=== PATIENT | male | born 1970 | race Caucasian/White ===

== ENCOUNTER 2017-09-05 13:19 | Emergency (ER) | payer MEDICARE, MEDICAID ==
[~2017-09-05] VITALS: Ht 182781.3 cm; Wt 74.5 kg
[~2017-09-05 13:19] MED LIST: AZIT250T PO; BACL10TA2 PO; BUPR300T7 PO; GABA-532 PO; LOPE2CAP; ONDA4TAB6 PO; PANT40TA4 PO; SACC250C PO; VARD10TA18
[2017-09-05 14:05] LABS: BASOPHILS # (AUTO) 0.1 X10'3 (0-0.2); BASOPHILS % (AUTO) 0.6 % (0-1); EOSINOPHILS # (AUTO) 0.1 X10'3 (0-0.9); EOSINOPHILS % (AUTO) 0.6 % (0-6); HEMATOCRIT 38.2 % (42.0-52.0); LYMPHOCYTES # (AUTO) 1.7 X10'3 (1.1-4.8); LYMPHOCYTES % (AUTO) 13.4 % (21-51); MEAN CORPUSCULAR HEMOGLOBIN 32.8 PG (27.0-31.0); MEAN CORPUSCULAR VOLUME 96.4 FL (78-98); MEAN PLATELET VOLUME 8.2 FL (7.4-10.4); MONOCYTES # (AUTO) 1.1 X10'3 (0-0.9); MONOCYTES % (AUTO) 8.3 % (2-12); NEUTROPHILS % (AUTO) 77.1 % (42-75); PLATELET COUNT 244 X10'3 (140-440); RED BLOOD COUNT 3.96 X10'6 (4.70-6.10); RED CELL DISTRIBUTION WIDTH 12.7 % (11.5-14.5)
[2017-09-05 14:21] LABS: ALANINE AMINOTRANSFERASE 49 U/L (12-78); ALBUMIN 3.9 G/DL (3.4-5.0); ALBUMIN/GLOBULIN RATIO 1.3 (1.1-1.5); ALKALINE PHOSPHATASE 48 IU/L (46-116); ANION GAP 9 (8-16); ASPARTATE AMINO TRANSFERASE 89 U/L (10-37); BILIRUBIN,TOTAL 0.6 MG/DL (0.1-1.0); BLOOD UREA NITROGEN 20 MG/DL (7-18); BUN/CREATININE RATIO 16.3 (5.4-32.0); CALCIUM 9.5 MG/DL (8.5-10.1); CHLORIDE 105 MMOL/L (99-107); CREATININE 1.23 MG/DL (0.60-1.10); ETHANOL < 0.010 GM/DL (0.0-0.010); GLUCOSE 122 MG/DL (70-104); POTASSIUM 3.9 MMOL/L (3.5-5.1); SODIUM 143 MMOL/L (135-145); TOTAL CARBON DIOXIDE 29.4 MMOL/L (24-32); eGFR 63 ML/MIN
[2017-09-05] MEDS ORDERED: LORazepam 2 mg/ml vial IM ONE (15:55)
[2017-09-05] MEDS ORDERED: haloperidol lactate 5mg/ml inj IM ONE (15:55)
[2017-09-05 18:18] LABS: CLARITY,URINE SLIGHTLY CLOUDY (Clear); COLOR,URINE YELLOW (Yellow); GLUCOSE, URINE NEGATIVE (Neg); KETONES,URINE 40 mg/dl (Neg); LEUKOCYTE ESTERASE ,URINE NEGATIVE (Neg); NITRITES, URINE NEGATIVE (Neg); OCCULT BLOOD,URINE NEGATIVE (Neg); PROTEIN,URINE TRACE mg/dl (Neg); UROBILINOGEN,URINE 0.2 E.U/dL (0.2-1.0)
[2017-09-05 18:21] LABS: UA COLLECTION TYPE VOIDED
[2017-09-05 18:29] LABS: URINE AMPHETAMINE SCREEN NEGATIVE (Neg); URINE BARBITUATE SCREEN NEGATIVE (Neg); URINE BENZODIAZEPINES SCREEN NEGATIVE (Neg); URINE CANNABINOID SCREEN POSITIVE (Neg); URINE COCAINE SCREEN NEGATIVE (Neg); URINE METHADONE SCREEN NEGATIVE (Neg); URINE OPIATE SCREEN POSITIVE (Neg); URINE PHENCYCLIDINE SCREEN NEGATIVE (Neg)
[2017-09-05 18:30] LABS: BACTERIA,URINE NONE SEEN /HPF (Neg); RBC,URINE 0-2 /HPF (0-2); SQUAMOUS EPITHELIAL CELL,UR FEW /LPF (FEW); WBC,URINE 0-4 /HPF (0-4)
[2017-09-05] MEDS ORDERED: OLAN10VI4 IM (22:58)
[2017-09-05] MEDS ORDERED: OLAN10TA3 PO (22:58)
[2017-09-05] MEDS ORDERED: LAMO25TA94 PO (22:58)
[2017-09-05] MEDS ORDERED: OLAN5TAB3 PO (22:58)
[2017-09-05] MEDS ORDERED: OLANZapine **IM** 10 mg inj. IM PRN (23:25)
[2017-09-05] MEDS ORDERED: OLANZapine 5mg rapidly disint. tablet PO PRN (23:31)
[2017-09-06] MEDS: lamoTRIgine 25mg tablet PO SCH (08:13)
[2017-09-06] MEDS: olanzapine 10mg tablet PO SCH (20:41)
[2017-09-07] MEDS: lamoTRIgine 25mg tablet PO SCH (08:17)
[2017-09-07] MEDS: nicotine 14mg patch - 24hr TD SCH (12:29)
[2017-09-07] MEDS: olanzapine 10mg tablet PO SCH (20:32)
[2017-09-07] MEDS ORDERED: ibuprofen tablet 400 MG TABLET PO ONE (21:00)
[2017-09-08] MEDS: lamoTRIgine 25mg tablet PO SCH (08:01)
[2017-09-08] MEDS: nicotine 14mg patch - 24hr TD SCH ×2 (08:02→08:05)
[2017-09-08 12:51] VITALS: BP 108/64
[2017-09-10] MEDS ORDERED: BACDS PO (17:07)
[2017-09-10] MEDS ORDERED: CEPH500C5 PO (17:07)
[2017-09-13] MEDS ORDERED: GABA-532 PO (07:07)
[2017-09-13] MEDS ORDERED: BUPR300T54 PO (07:07)
[2017-09-13] MEDS ORDERED: CLON-529 PO (07:07)
[2017-09-13] MEDS ORDERED: LAMO100T2 PO (07:07)
== END 2017-09-08 12:54 ==
LOC: ER 13:19
DX: F25.0 Schizoaffective disorder, bipolar type (principal); F23 Brief psychotic disorder; G89.29 Other chronic pain; Z86.19 Personal history of other infectious and parasitic diseases; Z88.8 Allergy status to other drugs, medicaments and biological substances; Z79.899 Other long term (current) drug therapy
CPT/HCPCS: 36415; 80053; 80305; 80320; 81001; 84443; 85025; 96372; 99285; J1630; J2060; J3490

== ENCOUNTER 2017-09-20 19:19 | Emergency (ER) | payer MEDICARE, MEDICAID ==
[~2017-09-20] VITALS: Ht 5871 cm; Wt 75.0 kg
[~2017-09-20 19:19] MED LIST changes: -AZIT250T PO; +BACDS PO; -BACL10TA2 PO; +BUPR300T54 PO; -BUPR300T7 PO; +CEPH500C5 PO; +CLON-529 PO; +LAMO100T2 PO; -LOPE2CAP; +OLAN10TA3 PO; +OLAN10VI4 IM; +OLAN5TAB3 PO; -ONDA4TAB6 PO; -PANT40TA4 PO; -SACC250C PO; -VARD10TA18
[2017-09-20] MEDS ORDERED: haloperidol lactate 5mg/ml inj IM ONE (19:50)
[2017-09-20] MEDS ORDERED: diphenhydrAMINE 50 mg/ml inj IM ONE (19:50)
[2017-09-20 20:54] LABS: BASOPHILS # (AUTO) 0.1 X10'3 (0-0.2); BASOPHILS % (AUTO) 0.9 % (0-1); EOSINOPHILS # (AUTO) 0.3 X10'3 (0-0.9); EOSINOPHILS % (AUTO) 2.8 % (0-6); HEMATOCRIT 38.9 % (42.0-52.0); HEMOGLOBIN 13.2 g/dl (14.0-17.9); LYMPHOCYTES # (AUTO) 2.1 X10'3 (1.1-4.8); LYMPHOCYTES % (AUTO) 18.9 % (21-51); MEAN CORPUSCULAR HEMOGLOBIN 33.2 PG (27.0-31.0); MEAN CORPUSCULAR HGB CONC 33.9 % (33.0-36.5); MEAN CORPUSCULAR VOLUME 97.8 FL (78-98); MEAN PLATELET VOLUME 7.5 FL (7.4-10.4); MONOCYTES # (AUTO) 0.9 X10'3 (0-0.9); MONOCYTES % (AUTO) 7.8 % (2-12); NEUTROPHILS # (AUTO) 7.6 X10'3 (1.8-7.7); NEUTROPHILS % (AUTO) 69.6 % (42-75); PLATELET COUNT 276 X10'3 (140-440); RED BLOOD COUNT 3.97 X10'6 (4.70-6.10); RED CELL DISTRIBUTION WIDTH 12.7 % (11.5-14.5); WHITE BLOOD COUNT 10.9 X10'3 (4.5-11.0)
[2017-09-20 21:19] LABS: ALANINE AMINOTRANSFERASE 33 U/L (12-78); ALBUMIN 3.9 G/DL (3.4-5.0); ALBUMIN/GLOBULIN RATIO 1.2 (1.1-1.5); ALKALINE PHOSPHATASE 54 IU/L (46-116); ANION GAP 6 (8-16); ASPARTATE AMINO TRANSFERASE 28 U/L (10-37); BILIRUBIN,TOTAL 0.3 MG/DL (0.1-1.0); BLOOD UREA NITROGEN 15 MG/DL (7-18); BUN/CREATININE RATIO 14.9 (5.4-32.0); CALCIUM 9.2 MG/DL (8.5-10.1); CHLORIDE 104 MMOL/L (99-107); CREATININE 1.01 MG/DL (0.60-1.10); ETHANOL < 0.010 GM/DL (0.0-0.010); GLUCOSE 101 MG/DL (70-104); POTASSIUM 4.5 MMOL/L (3.5-5.1); SODIUM 141 MMOL/L (135-145); TOTAL CARBON DIOXIDE 30.9 MMOL/L (24-32); TOTAL PROTEIN 7.2 G/DL (6.4-8.2); eGFR 79 ML/MIN
[2017-09-20 21:24] LABS: ACETAMINOPHEN < 2.0 UG/ML (10-30)
[2017-09-21] MEDS ORDERED: BACL10TA PO (05:22)
[2017-09-21] MEDS ORDERED: TRAZ-146 PO (05:25)
[2017-09-21] MEDS ORDERED: DIPH50CA3 PO (05:35)
[2017-09-21] MEDS ORDERED: traZODone 50mg tablet PO PRN (06:00)
[2017-09-21 07:59] LABS: CLARITY,URINE CLEAR (Clear); COLOR,URINE YELLOW (Yellow); GLUCOSE, URINE NEGATIVE (Neg); KETONES,URINE NEGATIVE (Neg); LEUKOCYTE ESTERASE ,URINE NEGATIVE (Neg); NITRITES, URINE NEGATIVE (Neg); OCCULT BLOOD,URINE NEGATIVE (Neg); PROTEIN,URINE NEGATIVE (Neg); UROBILINOGEN,URINE 0.2 E.U/dL (0.2-1.0)
[2017-09-21 08:05] LABS: URINE AMPHETAMINE SCREEN NEGATIVE (Neg); URINE BARBITUATE SCREEN NEGATIVE (Neg); URINE BENZODIAZEPINES SCREEN NEGATIVE (Neg); URINE CANNABINOID SCREEN POSITIVE (Neg); URINE COCAINE SCREEN NEGATIVE (Neg); URINE METHADONE SCREEN NEGATIVE (Neg); URINE OPIATE SCREEN NEGATIVE (Neg); URINE PHENCYCLIDINE SCREEN NEGATIVE (Neg)
[2017-09-21 08:06] LABS: UA COLLECTION TYPE VOIDED
[2017-09-21] MEDS: gabapentin 300mg capsule PO SCH ×3 (08:26→20:01)
[2017-09-21] MEDS ORDERED: DIPH25CA46 (08:31)
[2017-09-21] MEDS ORDERED: OLANZapine **IM** 10 mg inj. IM PRN (12:15)
[2017-09-21] MEDS: OLANZapine 2.5MG tablet PO SCH (12:45)
[2017-09-21] MEDS: OLANZapine 2.5MG tablet PO PRN (18:59)
[2017-09-21] MEDS ORDERED: diphenhydrAMINE 50 mg/ml inj IM ONE (19:15)
[2017-09-21] MEDS ORDERED: haloperidol lactate 5mg/ml inj IM ONE (19:15)
[2017-09-21] MEDS ORDERED: traZODone 50mg tablet PO SCH (21:00)
[2017-09-22] MEDS: OLANZapine 2.5MG tablet PO PRN (05:22)
[2017-09-22 05:32] VITALS: BP 125/83
[2017-09-22] MEDS: gabapentin 300mg capsule PO SCH ×2 (08:26→13:19)
[2017-09-22] MEDS: OLANZapine 2.5MG tablet PO SCH (08:26)
[2017-09-22] MEDS ORDERED: haloperidol lactate 5mg/ml inj IM ONE ×2 (12:15→12:24)
[2017-09-22] MEDS ORDERED: diphenhydrAMINE 50 mg/ml inj IM ONE (12:15)
[2017-09-22] MEDS ORDERED: LORazepam 2 mg/ml vial IM ONE (12:15)
== END 2017-09-22 19:20 ==
LOC: ER 19:19
DX: F29 Unspecified psychosis not due to a substance or known physiological condition (principal); G89.29 Other chronic pain; Z86.19 Personal history of other infectious and parasitic diseases; Z88.8 Allergy status to other drugs, medicaments and biological substances; Z79.899 Other long term (current) drug therapy
CPT/HCPCS: 36415; 80053; 80305; 80320; 80329; 81003; 84443; 85025; 96372; 99285; J1200; J1630; J2060

== ENCOUNTER 2020-07-11 14:57 | Emergency (ER) | payer MEDICARE, MEDICAID ==
[~2020-07-11] VITALS: Ht 175.3 cm; Wt 88.3 kg
[~2020-07-11 14:57] MED LIST changes: -BACDS PO; -BUPR300T54 PO; -CEPH500C5 PO; -CLON-529 PO; +DIPH50CA3 PO; -LAMO100T2 PO; -OLAN10TA3 PO; -OLAN10VI4 IM; -OLAN5TAB3 PO; +TRAZ-256 PO
[2020-07-11 15:27] LABS: BASOPHILS # (AUTO) 0.1 X10'3 (0-0.2); BASOPHILS % (AUTO) 0.5 % (0-1); EOSINOPHILS # (AUTO) 0.2 X10'3 (0-0.9); EOSINOPHILS % (AUTO) 1.8 % (0-6); HEMATOCRIT 42.5 % (42.0-52.0); HEMOGLOBIN 14.6 g/dl (14.0-17.9); LYMPHOCYTES # (AUTO) 0.9 X10'3 (1.1-4.8); LYMPHOCYTES % (AUTO) 9.7 % (21-51); MEAN CORPUSCULAR HEMOGLOBIN 32.6 PG (27.0-31.0); MEAN CORPUSCULAR HGB CONC 34.3 g/dL (33.0-36.5); MEAN PLATELET VOLUME 7.6 FL (7.4-10.4); MONOCYTES # (AUTO) 0.8 X10'3 (0-0.9); MONOCYTES % (AUTO) 7.9 % (2-12); NEUTROPHILS # (AUTO) 7.6 X10'3 (1.8-7.7); NEUTROPHILS % (AUTO) 80.1 % (42-75); PLATELET COUNT 277 X10'3 (140-440); RED BLOOD COUNT 4.48 X10'6 (4.70-6.10); RED CELL DISTRIBUTION WIDTH 12.8 % (11.5-14.5); WHITE BLOOD COUNT 9.5 X10'3 (4.5-11.0)
[2020-07-11 15:43] LABS: ALANINE AMINOTRANSFERASE 17 U/L (12-78); ALBUMIN 4.1 G/DL (3.4-5.0); ALBUMIN/GLOBULIN RATIO 1.1 (1.1-1.5); ALKALINE PHOSPHATASE 72 IU/L (46-116); ANION GAP 9 (8-16); ASPARTATE AMINO TRANSFERASE 15 U/L (10-37); BILIRUBIN,TOTAL 0.4 MG/DL (0.1-1.0); BLOOD UREA NITROGEN 14 MG/DL (7-18); BUN/CREATININE RATIO 13.9 (5.4-32.0); CALCIUM 9.3 MG/DL (8.5-10.1); CHLORIDE 102 MMOL/L (99-107); CREATININE 1.01 MG/DL (0.60-1.10); ETHANOL < 0.010 GM/DL (0.0-0.010); GLUCOSE 105 MG/DL (70-104); POTASSIUM 4.4 MMOL/L (3.5-5.1); SODIUM 138 MMOL/L (135-145); TOTAL CARBON DIOXIDE 27.4 MMOL/L (24-32); TOTAL PROTEIN 7.8 G/DL (6.4-8.2); eGFR 78 ML/MIN
[2020-07-11 16:09] LABS: URINE AMPHETAMINE SCREEN NEGATIVE (Neg); URINE BARBITUATE SCREEN NEGATIVE (Neg); URINE BENZODIAZEPINES SCREEN NEGATIVE (Neg); URINE CANNABINOID SCREEN POSITIVE (Neg); URINE COCAINE SCREEN NEGATIVE (Neg); URINE METHADONE SCREEN NEGATIVE (Neg); URINE OPIATE SCREEN POSITIVE (Neg); URINE PHENCYCLIDINE SCREEN NEGATIVE (Neg)
[2020-07-11] MEDS ORDERED: normal saline 1000ML IV soln IVB ONE (17:20)
[2020-07-11] MEDS ORDERED: ondansetron/PF 4mg/2ml inj IV ONE (17:20)
[2020-07-11 17:52] LABS: CLARITY,URINE SLIGHTLY CLOUDY (Clear); COLOR,URINE YELLOW (Yellow); GLUCOSE, URINE NEGATIVE (Neg); KETONES,URINE 15 mg/dl (Neg); LEUKOCYTE ESTERASE ,URINE NEGATIVE (Neg); NITRITES, URINE NEGATIVE (Neg); OCCULT BLOOD,URINE NEGATIVE (Neg); PROTEIN,URINE NEGATIVE (Neg); UROBILINOGEN,URINE 0.2 E.U/dL (0.2-1.0)
[2020-07-11 17:53] LABS: UA COLLECTION TYPE CLN CATCH MIDSTREAM
[2020-07-11 17:59] LABS: BACTERIA,URINE NONE SEEN /HPF (Neg); MUCUS STRANDS FEW /LPF (Neg); RBC,URINE 0-2 /HPF (0-2); SQUAMOUS EPITHELIAL CELL,UR FEW /LPF (FEW); WBC,URINE 0-4 /HPF (0-4)
--- NOTE | 2020-07-11 18:04 | NUR ---
fluids given to pt for po challenge, pt stated feeling much better.
[2020-07-11 19:06] VITALS: BP 140/85
== END 2020-07-11 19:10 | disposition home or self-care (01) ==
LOC: ER 14:57
DX: R11.2 Nausea with vomiting, unspecified (principal); E86.0 Dehydration; G89.29 Other chronic pain; F12.90 Cannabis use, unspecified, uncomplicated; F17.200 Nicotine dependence, unspecified, uncomplicated; Z86.19 Personal history of other infectious and parasitic diseases; Z87.11 Personal history of peptic ulcer disease; Z90.49 Acquired absence of other specified parts of digestive tract
CPT/HCPCS: 36415; 80053; 80305; 80320; 81001; 85025; 96361; 96374; 99283; J2405; J7030

== ENCOUNTER 2024-04-24 12:53 | Inpatient (IN) | payer MEDICARE, MEDICAID ==
[~2024-04-24] VITALS: Ht 175.3 cm; Wt 92.0 kg
[~2024-04-24 12:53] MED LIST changes: -DIPH50CA3 PO; +DIPH50CA40 PO
[2024-04-24 13:25] LABS: BASOPHILS # (AUTO) 0.2 X10'3 (0-0.2); BASOPHILS % (AUTO) 0.6 % (0-1); EOSINOPHILS % (AUTO) 0.1 % (0-6); HEMATOCRIT 26.3 % (42.0-52.0); HEMOGLOBIN 8.7 g/dl (14.0-17.9); LYMPHOCYTES # (AUTO) 1.3 X10'3 (1.1-4.8); LYMPHOCYTES % (AUTO) 4.2 % (21-51); MEAN CORPUSCULAR HEMOGLOBIN 27.8 PG (27.0-31.0); MEAN CORPUSCULAR HGB CONC 33.1 g/dL (33.0-36.5); MEAN CORPUSCULAR VOLUME 83.9 FL (78-98); MEAN PLATELET VOLUME 7.5 FL (7.4-10.4); MONOCYTES # (AUTO) 2.6 X10'3 (0-0.9); MONOCYTES % (AUTO) 8.6 % (2-12); NEUTROPHILS # (AUTO) 26.6 X10'3 (1.8-7.7); NEUTROPHILS % (AUTO) 86.5 % (42-75); PLATELET COUNT 595 X10'3 (140-440); RED BLOOD COUNT 3.13 X10'6 (4.70-6.10)
[2024-04-24 13:37] LABS: WHITE BLOOD COUNT 30.7 X10'3 (4.5-11.0)
[2024-04-24 13:48] LABS: ALBUMIN 1.3 G/DL (3.4-5.0); ANION GAP 6 (8-16); BLOOD UREA NITROGEN 16 MG/DL (7-18); BUN/CREATININE RATIO 14.8 (10.0-20.0); CALCIUM 8.3 MG/DL (8.5-10.1); CHLORIDE 98 MMOL/L (99-107); CREATININE 1.08 MG/DL (0.60-1.10); GLUCOSE 134 MG/DL (70-104); POTASSIUM 4.2 MMOL/L (3.5-5.1); PRO BRAIN NATRIURETIC PEPTIDE 1116 PG/ML (0-125); SODIUM 133 MMOL/L (135-145); TOTAL CARBON DIOXIDE 28.8 MMOL/L (24-32); eCRCL 78 ML/MIN; eGFR 71 ML/MIN
[2024-04-24 13:57] LABS: ANISOCYTOSIS 1+; GIANT PLATELET FEW; LARGE PLATELETS FEW; PLATELET ESTIMATE INCREASED; TOTAL CELLS COUNTED 100
[2024-04-24 14:19] LABS: D-DIMER 9.21 MG/L FEU (0-0.50)
[2024-04-24 14:23] LABS: ALANINE AMINOTRANSFERASE 36 U/L (12-78); ALBUMIN/GLOBULIN RATIO 0.3 (1.1-1.5); ALKALINE PHOSPHATASE 388 IU/L (46-116); ASPARTATE AMINO TRANSFERASE 21 U/L (10-37); BILIRUBIN,TOTAL 1.9 MG/DL (0.1-1.0); FREE T4 (FREE THYROXINE) 1.67 NG/DL (0.73-1.40); THYROID STIMULATING HORMONE 0.76 ulU/ml (0.34-4.50); TOTAL PROTEIN 6.4 G/DL (6.4-8.2)
[2024-04-24] MEDS: CefTRIAXone 2gm/D5W 50ml BAG 50 ML IV ONE (14:30)
[2024-04-24] MEDS ORDERED: iohexol 350MG/ML 100ml bottle IV ONE (14:39)
[2024-04-24] MEDS: ipratropium/albuterol 3ml nebule NEB PRN (15:40)
[2024-04-24 15:43] VITALS: PULSE 101; PULSE 96; RESP 17; RESP 19; O2SAT 93
[2024-04-24] MEDS ORDERED: potassium Cl 40MEQ/1/2NS 520ml 520 ML IV PRN (16:45)
[2024-04-24] MEDS ORDERED: magnesium sulf-water 2g/50mL 50 ML IV PRN (16:45)
[2024-04-24] MEDS ORDERED: magnesium sulf-water 4G/100mL 100 ML IV PRN (16:45)
[2024-04-24] MEDS ORDERED: potassium Cl 20 mEq SR tablet PO PRN ×2 (16:45)
[2024-04-24] MEDS ORDERED: magnesium hydroxide 30ml (MOM) UD suspension PO PRN (16:45)
[2024-04-24] MEDS ORDERED: acetaminophen 325mg tablet PO PRN (16:45)
[2024-04-24] MEDS ORDERED: morphine 2 MG/ML inj. syringe IV PRN (16:45)
[2024-04-24] MEDS ORDERED: ondansetron/PF 4mg/2ml inj IV PRN (16:45)
[2024-04-24] MEDS ORDERED: mag hydrox/Alum hydrox/simeth 30ml oral suspension PO PRN (16:45)
[2024-04-24] MEDS ORDERED: CefTRIAXone 2gm/D5W 50ml BAG 50 ML IV SCH (17:00)
[2024-04-24] MEDS: PERFLUTREN PROTEIN-A MICROSPHR (Optison) 0.22 MG/ML 3ML VIAL IV ONE (17:05)
[2024-04-24] MEDS: azithromycin/NS 500mg/250ml 250 ML IV SCH (17:32)
[2024-04-24] MEDS: normal saline 1000ml 1,000 ML IV ONE ×2 (17:32→20:12)
[2024-04-24] MEDS: methylPREDNISolone sod succ 125mg/2ml vial IV SCH (17:32)
[2024-04-24] MEDS: normal saline 1000ml 1,000 ML IV SCH (17:32)
[2024-04-24 17:40] LABS: ABG BASE EXCESS 1.4 mmol/L (-2.0-3.0); ABG HCO3 25.2 mmol/L (21.0-28.0); ABG OXYGEN SATURATION 88.7 % (94.0-98.0); ABG PCO2 (T) 36.5 mmHg (35.0-48.0); ABG PH (T) 7.457 (7.350-7.450); ABG PO2 (T) 54.3 mmHg (83.0-108.0); ALLEN'S TEST POSITIVE; FCOHb 0.6 % (0.5-1.5); FHHb 11.2 % (0.0-5.0); FMetHb 0.3 % (0.0-1.5); FO2Hb 87.9 % (94.0-98.0); MODE ROOM AIR
[2024-04-24 19:22] VITALS: PULSE 80; RESP 18; O2SAT 92
[2024-04-24] MEDS: ipratropium/albuterol 3ml nebule NEB SCH (19:22)
[2024-04-24 19:30] VITALS: PULSE 88; RESP 16
[2024-04-24] MEDS: docusate sod 100mg capsule PO SCH (20:00)
[2024-04-24] MEDS ORDERED: methylPREDNISolone sod succ/PF 40mg inj. IV SCH (20:00)
[2024-04-24] MEDS: K and/or MAG REPLACEMENT MC SCH (20:00)
[2024-04-24] MEDS: LORazepam 1 MG tablet PO PRN (20:16)
[2024-04-24 20:40] LABS: BILIRUBIN,URINE MODERATE (Neg); CLARITY,URINE CLEAR (Clear); COLOR,URINE YELLOW (Yellow); GLUCOSE, URINE NEGATIVE (Neg); KETONES,URINE NEGATIVE (Neg); LEUKOCYTE ESTERASE ,URINE NEGATIVE (Neg); OCCULT BLOOD,URINE NEGATIVE (Neg); PROTEIN,URINE NEGATIVE (Neg); UROBILINOGEN,URINE 0.2 E.U/dL (0.2-1.0)
[2024-04-24 20:45] LABS: NITRITES, URINE NEGATIVE (Neg); UA COLLECTION TYPE CLN CATCH MIDSTREAM
[2024-04-24 22:12] LABS: URINE AMPHETAMINE SCREEN POSITIVE (Neg); URINE BARBITUATE SCREEN NEGATIVE (Neg); URINE BENZODIAZEPINES SCREEN NEGATIVE (Neg); URINE CANNABINOID SCREEN POSITIVE (Neg); URINE COCAINE SCREEN NEGATIVE (Neg); URINE METHADONE SCREEN NEGATIVE (Neg); URINE OPIATE SCREEN NEGATIVE (Neg); URINE PHENCYCLIDINE SCREEN NEGATIVE (Neg)
[2024-04-24] MEDS: levoFLOXACIN-Levaquin 750MG/D5 150 ML IV STA (22:13)
[2024-04-25] VITALS (17 sets, daily range): BP systolic 96–131; BP diastolic 46–65; PULSE 94–114; RESP 17–24; TEMP 96.1–97.8; O2SAT 90–98
[2024-04-25] MEDS: heparin, porcine 5000 units/ml vial SQ SCH (01:07)
[2024-04-25 04:20] LABS: ABSOLUTE RETICS # 36300 /CUMM (23000-93000); BASOPHILS % (AUTO) 0.2 % (0-1); EOSINOPHILS % (AUTO) 0 % (0-6); HEMATOCRIT 26.9 % (42.0-52.0); HEMOGLOBIN 8.9 g/dl (14.0-17.9); LYMPHOCYTES # (AUTO) 0.9 X10'3 (1.1-4.8); LYMPHOCYTES % (AUTO) 4.2 % (21-51); MEAN CORPUSCULAR HEMOGLOBIN 27.7 PG (27.0-31.0); MEAN CORPUSCULAR HGB CONC 33.3 g/dL (33.0-36.5); MEAN CORPUSCULAR VOLUME 83.2 FL (78-98); MEAN PLATELET VOLUME 7.5 FL (7.4-10.4); MONOCYTES # (AUTO) 0.8 X10'3 (0-0.9); MONOCYTES % (AUTO) 3.9 % (2-12); NEUTROPHILS # (AUTO) 19.7 X10'3 (1.8-7.7); NEUTROPHILS % (AUTO) 91.7 % (42-75); PLATELET COUNT 594 X10'3 (140-440); RED BLOOD COUNT 3.23 X10'6 (4.70-6.10); RED CELL DISTRIBUTION WIDTH 17.3 % (11.5-14.5); RETICULOCYTE % (AUTO) 1.1 % (0.5-1.5); WHITE BLOOD COUNT 21.5 X10'3 (4.5-11.0)
[2024-04-25 04:34] LABS: ALANINE AMINOTRANSFERASE 40 U/L (12-78); ALBUMIN 1.1 G/DL (3.4-5.0); ALBUMIN/GLOBULIN RATIO 0.2 (1.1-1.5); ALKALINE PHOSPHATASE 393 IU/L (46-116); ANION GAP 9 (8-16); ASPARTATE AMINO TRANSFERASE 38 U/L (10-37); BILIRUBIN,TOTAL 1.4 MG/DL (0.1-1.0); BLOOD UREA NITROGEN 17 MG/DL (7-18); BUN/CREATININE RATIO 19.3 (10.0-20.0); CALCIUM 8.9 MG/DL (8.5-10.1); CHLORIDE 103 MMOL/L (99-107); CREATININE 0.88 MG/DL (0.60-1.10); GLUCOSE 158 MG/DL (70-104); MAGNESIUM 2.2 MG/DL (1.5-2.4); POTASSIUM 3.8 MMOL/L (3.5-5.1); SODIUM 138 MMOL/L (135-145); TOTAL CARBON DIOXIDE 25.7 MMOL/L (24-32); eCRCL 96 ML/MIN; eGFR 90 ML/MIN
[2024-04-25] MEDS ORDERED: CefTRIAXone 2gm/D5W 50ml BAG 50 ML IV SCH (08:00)
[2024-04-25] MEDS: levoFLOXACIN-Levaquin 750MG/D5 150 ML IV SCH (08:51)
[2024-04-25] MEDS: methylPREDNISolone sod succ 125mg/2ml vial IV SCH (08:51)
[2024-04-25] MEDS: CefTRIAXone 2gm/D5W 50ml BAG 50 ML IV SCH (10:31)
[2024-04-25] MEDS: nicotine 21mg patch - 24 hr TD SCH (12:00)
[2024-04-25] MEDS: LORazepam 2 mg/ml vial IV STA (14:06)
[2024-04-25] MEDS: LORazepam 2 mg/ml vial IV SCH (17:36)
[2024-04-25] MEDS: acetaminophen 325mg tablet PO PRN (19:37)
[2024-04-25] MEDS ORDERED: naloxone 0.4 mg/ml inj IV PRN (23:05)
[2024-04-25] MEDS: cloNIDine 0.1 mg tablet PO SCH (23:30)
[2024-04-26] VITALS (15 sets, daily range): BP systolic 99–141; BP diastolic 56–86; PULSE 93–112; RESP 13–20; TEMP 97.3–97.9; O2SAT 91–98
[2024-04-26] MEDS: HYDROcodone/acetaminophen 10/325mg tab PO PRN (02:24)
[2024-04-26 07:44] LABS: ALANINE AMINOTRANSFERASE 40 U/L (12-78); ALBUMIN 1.1 G/DL (3.4-5.0); ALBUMIN/GLOBULIN RATIO 0.2 (1.1-1.5); ALKALINE PHOSPHATASE 349 IU/L (46-116); ANION GAP 7 (8-16); ASPARTATE AMINO TRANSFERASE 32 U/L (10-37); BILIRUBIN,TOTAL 0.4 MG/DL (0.1-1.0); BLOOD UREA NITROGEN 24 MG/DL (7-18); BUN/CREATININE RATIO 22.2 (10.0-20.0); CALCIUM 8.7 MG/DL (8.5-10.1); CHLORIDE 106 MMOL/L (99-107); CREATININE 1.08 MG/DL (0.60-1.10); ETHANOL < 10 MG/DL (<10); GLUCOSE 178 MG/DL (70-104); MAGNESIUM 1.9 MG/DL (1.5-2.4); POTASSIUM 3.9 MMOL/L (3.5-5.1); SODIUM 140 MMOL/L (135-145); TOTAL CARBON DIOXIDE 26.7 MMOL/L (24-32); TOTAL PROTEIN 5.9 G/DL (6.4-8.2); eCRCL 78 ML/MIN; eGFR 71 ML/MIN
[2024-04-26] MEDS: LORazepam 2 mg/ml vial IV PRN (08:08)
[2024-04-26] MEDS: pneumococcal 23-VAL P-sac vacc 25 mcg/0.5ml vial IMVAC ONE (08:09)
[2024-04-26] MEDS: FLU VACC TS2024-25(6MOS UP)/PF 45 MCG/0.5 ML SYRINGE IMVAC ONE (08:09)
[2024-04-26 09:13] LABS: BASOPHILS # (AUTO) 0.1 X10'3 (0-0.2); BASOPHILS % (AUTO) 0.3 % (0-1); EOSINOPHILS % (AUTO) 0 % (0-6); HEMATOCRIT 26.3 % (42.0-52.0); HEMOGLOBIN 8.7 g/dl (14.0-17.9); LYMPHOCYTES # (AUTO) 1.6 X10'3 (1.1-4.8); LYMPHOCYTES % (AUTO) 5.7 % (21-51); MEAN CORPUSCULAR HEMOGLOBIN 27.6 PG (27.0-31.0); MEAN CORPUSCULAR HGB CONC 33.3 g/dL (33.0-36.5); MEAN PLATELET VOLUME 7.3 FL (7.4-10.4); MONOCYTES # (AUTO) 1.4 X10'3 (0-0.9); MONOCYTES % (AUTO) 5.1 % (2-12); NEUTROPHILS # (AUTO) 25.3 X10'3 (1.8-7.7); NEUTROPHILS % (AUTO) 88.9 % (42-75); PLATELET COUNT 676 X10'3 (140-440); RED BLOOD COUNT 3.16 X10'6 (4.70-6.10); RED CELL DISTRIBUTION WIDTH 17.4 % (11.5-14.5)
[2024-04-26 09:17] LABS: WHITE BLOOD COUNT 28.5 X10'3 (4.5-11.0)
[2024-04-26] MEDS ORDERED: buprenorphine/naloxone 8MG-2MG SUBlingual film SL SCH (10:00)
[2024-04-26 10:01] LABS: ANISOCYTOSIS 1+; HYPOCHROMASIA 1+; PLATELET ESTIMATE INCREASED; POLYCHROMASIA FEW; TOTAL CELLS COUNTED 100
[2024-04-26 10:02] LABS: BURR CELLS FEW; ELLIPTOCYTES FEW
[2024-04-26] MEDS: morphine 2 MG/ML inj. syringe IV STA (10:23)
[2024-04-26] MEDS ORDERED: PANT-47 PO (14:21)
[2024-04-26] MEDS ORDERED: BENZ0.5T3 (14:23)
[2024-04-26] MEDS ORDERED: BUPR-114 PO (14:24)
[2024-04-26] MEDS ORDERED: DIPH25TA23 PO (14:24)
[2024-04-26] MEDS ORDERED: DIPH-423 PO (14:25)
[2024-04-26] MEDS: traZODone 50mg tablet PO SCH (19:56)
[2024-04-27] VITALS (14 sets, daily range): BP systolic 115–138; BP diastolic 51–81; PULSE 88–119; RESP 13–28; TEMP 97.4–98.6; O2SAT 88–100
[2024-04-27 07:06] LABS: BASOPHILS # (AUTO) 0.1 X10'3 (0-0.2); HEMOGLOBIN 8.6 g/dl (14.0-17.9)
[2024-04-27 07:08] LABS: BASOPHILS % (AUTO) 0.4 % (0-1); EOSINOPHILS % (AUTO) 0 % (0-6); HEMATOCRIT 26.1 % (42.0-52.0); LYMPHOCYTES # (AUTO) 2.1 X10'3 (1.1-4.8); MEAN CORPUSCULAR HEMOGLOBIN 27.1 PG (27.0-31.0); MEAN CORPUSCULAR HGB CONC 32.8 g/dL (33.0-36.5); MEAN CORPUSCULAR VOLUME 82.7 FL (78-98); MEAN PLATELET VOLUME 7.2 FL (7.4-10.4); MONOCYTES # (AUTO) 1.6 X10'3 (0-0.9); MONOCYTES % (AUTO) 6.3 % (2-12); NEUTROPHILS # (AUTO) 21.9 X10'3 (1.8-7.7); NEUTROPHILS % (AUTO) 85.3 % (42-75); PLATELET COUNT 642 X10'3 (140-440); RED BLOOD COUNT 3.16 X10'6 (4.70-6.10); RED CELL DISTRIBUTION WIDTH 17.4 % (11.5-14.5)
[2024-04-27 07:16] LABS: WHITE BLOOD COUNT 25.6 X10'3 (4.5-11.0)
[2024-04-27 07:29] LABS: ALANINE AMINOTRANSFERASE 54 U/L (12-78); ALBUMIN 1.2 G/DL (3.4-5.0); ALBUMIN/GLOBULIN RATIO 0.3 (1.1-1.5); ALKALINE PHOSPHATASE 323 IU/L (46-116); ANION GAP 9 (8-16); ASPARTATE AMINO TRANSFERASE 54 U/L (10-37); BILIRUBIN,TOTAL 0.5 MG/DL (0.1-1.0); BLOOD UREA NITROGEN 16 MG/DL (7-18); CALCIUM 8.3 MG/DL (8.5-10.1); CHLORIDE 105 MMOL/L (99-107); CREATININE 0.89 MG/DL (0.60-1.10); GLUCOSE 84 MG/DL (70-104); MAGNESIUM 1.5 MG/DL (1.5-2.4); POTASSIUM 3.7 MMOL/L (3.5-5.1); SODIUM 139 MMOL/L (135-145); TOTAL CARBON DIOXIDE 25.3 MMOL/L (24-32); TOTAL PROTEIN 5.6 G/DL (6.4-8.2); eCRCL 95 ML/MIN; eGFR 89 ML/MIN
[2024-04-27 07:41] LABS: NUCLEATED RED BLOOD CELLS 1 /100WBC (0-0); PLATELET ESTIMATE INCREASED; TOTAL CELLS COUNTED 100
[2024-04-27 07:42] LABS: ANISOCYTOSIS 1+; HYPOCHROMASIA 1+; POLYCHROMASIA 1+; ROULEAUX 1+; TOXIC GRANULATION 1+; TOXIC VACUOLATION FEW
[2024-04-27 07:43] LABS: ELLIPTOCYTES FEW; SCHISTOCYTES FEW; TARGET CELLS FEW
[2024-04-27] MEDS: morphine 2 MG/ML inj. syringe IV PRN (08:48)
[2024-04-27] MEDS: VANCOMYCIN 1.75GM/WATER FOR INJ (PEG) 350 ML IVPB IV ONE (22:25)
[2024-04-28] VITALS (14 sets, daily range): BP systolic 110–125; BP diastolic 52–76; PULSE 83–115; RESP 12–23; TEMP 97.4–100.1; O2SAT 20–97
[2024-04-28] MEDS: diphenhydrAMINE 25mg capsule PO PRN (00:31)
[2024-04-28] MEDS: cloNIDine 0.1 mg tablet PO SCH (02:09)
[2024-04-28 06:09] LABS: BASOPHILS # (AUTO) 0.1 X10'3 (0-0.2); EOSINOPHILS # (AUTO) 0.2 X10'3 (0-0.9)
[2024-04-28 06:10] LABS: BASOPHILS % (AUTO) 0.3 % (0-1); EOSINOPHILS % (AUTO) 0.8 % (0-6); HEMATOCRIT 25.9 % (42.0-52.0); HEMOGLOBIN 8.6 g/dl (14.0-17.9); LYMPHOCYTES # (AUTO) 2.5 X10'3 (1.1-4.8); LYMPHOCYTES % (AUTO) 9.8 % (21-51); MEAN CORPUSCULAR HEMOGLOBIN 27.7 PG (27.0-31.0); MEAN CORPUSCULAR VOLUME 83.8 FL (78-98); MEAN PLATELET VOLUME 7.6 FL (7.4-10.4); MONOCYTES # (AUTO) 0.6 X10'3 (0-0.9); MONOCYTES % (AUTO) 2.2 % (2-12); NEUTROPHILS # (AUTO) 22.3 X10'3 (1.8-7.7); NEUTROPHILS % (AUTO) 86.9 % (42-75); PLATELET COUNT 603 X10'3 (140-440); RED BLOOD COUNT 3.09 X10'6 (4.70-6.10); RED CELL DISTRIBUTION WIDTH 17.5 % (11.5-14.5)
[2024-04-28 06:18] LABS: ALANINE AMINOTRANSFERASE 38 U/L (12-78); ALBUMIN 1.2 G/DL (3.4-5.0); ALBUMIN/GLOBULIN RATIO 0.3 (1.1-1.5); ALKALINE PHOSPHATASE 266 IU/L (46-116); ANION GAP 7 (8-16); ASPARTATE AMINO TRANSFERASE 24 U/L (10-37); BILIRUBIN,TOTAL 0.6 MG/DL (0.1-1.0); BLOOD UREA NITROGEN 13 MG/DL (7-18); BUN/CREATININE RATIO 15.3 (10.0-20.0); CHLORIDE 106 MMOL/L (99-107); CREATININE 0.85 MG/DL (0.60-1.10); GLUCOSE 82 MG/DL (70-104); MAGNESIUM 1.5 MG/DL (1.5-2.4); POTASSIUM 3.5 MMOL/L (3.5-5.1); SODIUM 138 MMOL/L (135-145); TOTAL CARBON DIOXIDE 24.9 MMOL/L (24-32); TOTAL PROTEIN 5.4 G/DL (6.4-8.2); WHITE BLOOD COUNT 25.7 X10'3 (4.5-11.0); eCRCL 99 ML/MIN; eGFR > 90 ML/MIN
[2024-04-28 06:43] LABS: TOTAL CELLS COUNTED 100
[2024-04-28 06:44] LABS: ANISOCYTOSIS 1+; PLATELET ESTIMATE INCREASED; POLYCHROMASIA 1+
[2024-04-28 08:47] LABS: HIV ANTIBODY 1&2 RAPID NON-REACTIVE (Neg)
[2024-04-28] MEDS: VANCOMYCIN/WATER FOR INJ (PEG) 1.25GM/250 ML IVPB IV SCH (10:50)
[2024-04-28 11:06] LABS: LACTATE DEHYDROGENASE 326 U/L (85-227)
[2024-04-28] MEDS ORDERED: LORazepam 2 mg/ml vial IV SCH (18:00)
[2024-04-28] MEDS: lactose-reduced food (Ensure Enlive) - 237ml bottle PO SCH (18:00)
[2024-04-28] MEDS: VANCOMYCIN 1GM 200ML H20 (PEG) 200 ML IV SCH (19:59)
[2024-04-28] MEDS: HYDROcodone/acetaminophen 5mg/325mg tablet PO PRN (20:01)
[2024-04-29] VITALS (16 sets, daily range): BP systolic 92–116; BP diastolic 52–69; PULSE 74–104; RESP 16–24; TEMP 97.4–100.1; O2SAT 90–97
[2024-04-29 07:19] LABS: BASOPHILS # (AUTO) 0.1 X10'3 (0-0.2); BASOPHILS % (AUTO) 0.6 % (0-1); EOSINOPHILS # (AUTO) 0.2 X10'3 (0-0.9); EOSINOPHILS % (AUTO) 0.8 % (0-6); HEMATOCRIT 28.6 % (42.0-52.0); HEMOGLOBIN 9.2 g/dl (14.0-17.9); LYMPHOCYTES % (AUTO) 12.9 % (21-51); MEAN CORPUSCULAR HEMOGLOBIN 27.5 PG (27.0-31.0); MEAN CORPUSCULAR HGB CONC 32.3 g/dL (33.0-36.5); MEAN CORPUSCULAR VOLUME 85.1 FL (78-98); MEAN PLATELET VOLUME 7.5 FL (7.4-10.4); MONOCYTES # (AUTO) 1.5 X10'3 (0-0.9); MONOCYTES % (AUTO) 6.3 % (2-12); NEUTROPHILS # (AUTO) 18.2 X10'3 (1.8-7.7); NEUTROPHILS % (AUTO) 79.4 % (42-75); PLATELET COUNT 548 X10'3 (140-440); RED BLOOD COUNT 3.35 X10'6 (4.70-6.10); WHITE BLOOD COUNT 22.9 X10'3 (4.5-11.0)
[2024-04-29 07:36] LABS: ALANINE AMINOTRANSFERASE 34 U/L (12-78); ALBUMIN 1.3 G/DL (3.4-5.0); ALBUMIN/GLOBULIN RATIO 0.3 (1.1-1.5); ALKALINE PHOSPHATASE 253 IU/L (46-116); ANION GAP 10 (8-16); ASPARTATE AMINO TRANSFERASE 24 U/L (10-37); BILIRUBIN,TOTAL 0.6 MG/DL (0.1-1.0); BLOOD UREA NITROGEN 12 MG/DL (7-18); BUN/CREATININE RATIO 12.9 (10.0-20.0); CALCIUM 7.7 MG/DL (8.5-10.1); CHLORIDE 108 MMOL/L (99-107); CREATININE 0.93 MG/DL (0.60-1.10); GLUCOSE 76 MG/DL (70-104); POTASSIUM 3.5 MMOL/L (3.5-5.1); SODIUM 141 MMOL/L (135-145); TOTAL CARBON DIOXIDE 22.6 MMOL/L (24-32); TOTAL PROTEIN 5.8 G/DL (6.4-8.2); eCRCL 91 ML/MIN; eGFR 85 ML/MIN
[2024-04-29 07:43] LABS: TOTAL CELLS COUNTED 100
[2024-04-29 07:44] LABS: ANISOCYTOSIS 1+; PLATELET ESTIMATE INCREASED; POLYCHROMASIA 1+
[2024-04-29] MEDS ORDERED: levoFLOXACIN-Levaquin 750MG/D5 150 ML IV SCH (11:30)
[2024-04-29] MEDS: levoFLOXACIN 750MG TABLET PO SCH (13:28)
[2024-04-29] MEDS ORDERED: LORazepam 2 mg/ml vial IV SCH (18:00)
[2024-04-29] MEDS: VANCOMYCIN LEVEL IV ONE (18:30)
[2024-04-29] MEDS: cloNIDine 0.1 mg tablet PO SCH (23:30)
[2024-04-30] VITALS (13 sets, daily range): BP systolic 100–113; BP diastolic 48–69; PULSE 67–106; RESP 16–22; TEMP 97.2–98.2; O2SAT 91–97
[2024-04-30 12:10] LABS: ALANINE AMINOTRANSFERASE 35 U/L (12-78); ALBUMIN 1.5 G/DL (3.4-5.0); ALBUMIN/GLOBULIN RATIO 0.3 (1.1-1.5); ALKALINE PHOSPHATASE 267 IU/L (46-116); ANION GAP 9 (8-16); ASPARTATE AMINO TRANSFERASE 26 U/L (10-37); BILIRUBIN,TOTAL 0.4 MG/DL (0.1-1.0); BLOOD UREA NITROGEN 11 MG/DL (7-18); BUN/CREATININE RATIO 12.1 (10.0-20.0); CALCIUM 8.1 MG/DL (8.5-10.1); CHLORIDE 109 MMOL/L (99-107); CREATININE 0.91 MG/DL (0.60-1.10); GLUCOSE 92 MG/DL (70-104); POTASSIUM 3.8 MMOL/L (3.5-5.1); SODIUM 141 MMOL/L (135-145); TOTAL CARBON DIOXIDE 22.7 MMOL/L (24-32); TOTAL PROTEIN 6.2 G/DL (6.4-8.2); eCRCL 93 ML/MIN; eGFR 87 ML/MIN
[2024-04-30 16:15] LABS: C DIFF ANTIGEN NEGATIVE (NEGATIVE); C DIFF SPECIMEN=DIARRHEA? ACCEPTABLE; C DIFFICILE TOXINS A&B NEGATIVE (Neg)
[2024-04-30] MEDS ORDERED: PALI819S IM (18:14)
[2024-04-30] MEDS ORDERED: traZODone 50mg tablet PO PRN (23:05)
[2024-05-01] VITALS (8 sets, daily range): BP systolic 96–103; BP diastolic 47–57; PULSE 91–119; RESP 17–29; TEMP 97.4–97.7; O2SAT 92–98
[2024-05-01] MEDS: clindamycin 150mg capsule PO SCH (01:35)
[2024-05-01] MEDS ORDERED: CLIN-232 PO (13:12)
[2024-05-01] MEDS ORDERED: LEVO-65 PO (13:12)
== END 2024-05-01 14:05 | disposition home or self-care (01) | DRG 871 ==
LOC: ER 12:54 → ED HOLD 16:54 → PCU 3S 23:15
PROVIDERS: ADMIT Nurse Practitioner Family; ATTEND Nurse Practitioner Family
PROC: B32T1ZZ Computerized Tomography (CT Scan) of Left Pulmonary Artery using Low Osmolar Contrast (ICD-10-PCS; principal; 2024-04-24)
PROC: B3201ZZ Computerized Tomography (CT Scan) of Thoracic Aorta using Low Osmolar Contrast (ICD-10-PCS; 2024-04-24)
PROC: B32S1ZZ Computerized Tomography (CT Scan) of Right Pulmonary Artery using Low Osmolar Contrast (ICD-10-PCS; 2024-04-24)
PROC: 3E02340 Introduction of Influenza Vaccine into Muscle, Percutaneous Approach (ICD-10-PCS; 2024-04-25)
PROC: 3E0234Z Introduction of Serum, Toxoid and Vaccine into Muscle, Percutaneous Approach (ICD-10-PCS; 2024-04-25)
DX: A41.9 Sepsis, unspecified organism (principal); J18.1 Lobar pneumonia, unspecified organism; J96.01 Acute respiratory failure with hypoxia; J44.0 Chronic obstructive pulmonary disease with (acute) lower respiratory infection; J44.1 Chronic obstructive pulmonary disease with (acute) exacerbation; E87.1 Hypo-osmolality and hyponatremia; F11.13 Opioid abuse with withdrawal; F15.13 Other stimulant abuse with withdrawal; G89.29 Other chronic pain; I27.23 Pulmonary hypertension due to lung diseases and hypoxia; D64.9 Anemia, unspecified; F12.10 Cannabis abuse, uncomplicated; F17.210 Nicotine dependence, cigarettes, uncomplicated; R16.0 Hepatomegaly, not elsewhere classified; Z79.899 Other long term (current) drug therapy; Z88.8 Allergy status to other drugs, medicaments and biological substances; Z87.11 Personal history of peptic ulcer disease; Z88.1 Allergy status to other antibiotic agents; Z71.6 Tobacco abuse counseling; R91.8 Other nonspecific abnormal finding of lung field
CPT/HCPCS: 36415; 36600; 71046; 71250; 71275; 76700; 80053; 80202; 80305; 80320; 81001; 82803; 83605; 83615; 83735; 83880; 84145; 84439; 84443; 84484; 85007; 85018; 85025; 85045; 85379; 86703; 87070; 87081; 87324; 87449; 90686; 90732; 93005; 93306; 94640; 94760; 96365; 97116; 97161; 97530; 99285; A4615; A6449; A6590; G0378; J0456; J0696; J1644; J1956; J2060; J2270; J2919; J3372; J7030; J7040; Q0163; Q9967